=== PATIENT | male | born 1995 | race Caucasian/White ===

== ENCOUNTER 2020-07-28 11:28 | Emergency (ER) | payer OTHER ==
[2020-07-28] MEDS ORDERED: AUGMENTIN 875-1 EACH PO (13:36)
[2020-07-28] MEDS ORDERED: BACTRIM DS TAB1 EACH PO (13:36)
== END 2020-07-28 13:58 | disposition home or self-care (01) ==
LOC: ER1 11:28
DX: L03.031 Cellulitis of right toe (principal); L05.91 Pilonidal cyst without abscess
CPT/HCPCS: 73630; 99283